=== PATIENT | male | born 1990 | race African-American/Black ===

== ENCOUNTER 2017-05-01 08:36 | Emergency (ER) | payer MEDICAID, MEDICARE ==
[~2017-05-01] VITALS: Ht 175.3 cm; Wt 113.0 kg
[2017-05-01] MEDS ORDERED: IBUPROFEN 600MG TABLET PO ONE (12:00)
[2017-05-01 12:01] VITALS: BP 144/86
== END 2017-05-01 14:06 | disposition home or self-care (01) ==
LOC: ER 12:07
DX: S42.032A Displaced fracture of lateral end of left clavicle, initial encounter for closed fracture (principal); Y04.2XXA Assault by strike against or bumped into by another person, initial encounter; Y93.89 Activity, other specified; Y92.410 Unspecified street and highway as the place of occurrence of the external cause; R03.0 Elevated blood-pressure reading, without diagnosis of hypertension; Z72.0 Tobacco use; F12.90 Cannabis use, unspecified, uncomplicated
CPT/HCPCS: 73030; 99284

== ENCOUNTER 2018-04-08 09:33 | Emergency (ER) | payer MEDICAID, MEDICARE ==
[~2018-04-08] VITALS: Ht 177.8 cm; Wt 121.0 kg
[2018-04-08 09:56] VITALS: BP 136/95
== END 2018-04-08 12:02 | disposition left against medical advice (07) ==
LOC: ER 11:37
DX: S40.222A Blister (nonthermal) of left shoulder, initial encounter (principal); S40.221A Blister (nonthermal) of right shoulder, initial encounter; Z53.21 Procedure and treatment not carried out due to patient leaving prior to being seen by health care provider; X58.XXXA Exposure to other specified factors, initial encounter; Y93.89 Activity, other specified; Y92.89 Other specified places as the place of occurrence of the external cause; Y99.8 Other external cause status

== ENCOUNTER 2019-02-22 14:40 | Emergency (ER) | payer MEDICAID ==
[~2019-02-22] VITALS: Ht 172.7 cm; Wt 122.0 kg
[2019-02-22 17:36] VITALS: BP 147/85
== END 2019-02-22 17:39 | disposition home or self-care (01) ==
LOC: ER 14:40
DX: M25.512 Pain in left shoulder (principal); F17.200 Nicotine dependence, unspecified, uncomplicated; F12.10 Cannabis abuse, uncomplicated; Z98.890 Other specified postprocedural states
CPT/HCPCS: 73030; 99283

== ENCOUNTER 2021-06-08 10:59 | Inpatient (IN) | payer MEDICAID ==
[~2021-06-08] VITALS: Ht 175.3 cm; Wt 127.0 kg
[2021-06-08 12:23] LABS: BASOPHILS % 0.6 % (0.0-2.0); EOSINOPHILS % 5.5 % (0.0-5.0); HEMATOCRIT. 42.3 % (42.0-52.0); HEMOGLOBIN. 14.5 g/dL (14.0-18.0); LYMPHOCYTES % 28.4 % (20.0-50.0); MEAN CORPUSCULAR HEMOGLOBIN 30.4 pg (28.0-32.0); MEAN CORPUSCULAR VOLUME 88.9 fL (80.0-94.0); MEAN PLATELET VOLUME 8.5 fl (7.4-10.4); MONOCYTES % 11.8 % (2.0-8.0); NEUTROPHILS % 53.7 % (40.0-76.0); PLATELET 312 x1000/uL (130-400); RED BLOOD CELL COUNT 4.76 mill/uL (4.7-6.1); RED CELL DISTRIBUTION WIDTH 13.3 % (11.6-14.6)
[2021-06-08 12:47] LABS: CHLORIDE 109 mEq/L (98-107)
[2021-06-08 12:52] LABS: ETHANOL BLOOD < 10 mg/dL
[2021-06-08] MEDS ORDERED: PANTOPRAZOLE SODIUM 40 MG/VIAL IV NR (16:15)
[2021-06-08] MEDS ORDERED: DOCUSATE SODIUM 100MG CAPSULE PO PRN (17:45)
[2021-06-08] MEDS ORDERED: ONDANSETRON HCL 4MG/2ML INJ IV PRN (17:45)
[2021-06-08] MEDS ORDERED: CLONIDINE 0.1MG TABLET PO PRN (17:45)
[2021-06-08] MEDS ORDERED: LORAZEPAM 0.5MG TABLET PO PRN (17:45)
[2021-06-08] MEDS ORDERED: NA PHOS,M-B/NA PHOS,DI-BA ENEMA 118ML PR PRN (17:45)
[2021-06-08] MEDS ORDERED: GUAIFENESIN 200MG/10ML SUGAR FREE UDC PO PRN (17:45)
[2021-06-08] MEDS ORDERED: HYDROCODONE/ACETAMINOPHEN 5/325MG TABLET PO PRN (17:45)
[2021-06-08] MEDS ORDERED: IPRATROPIUM/ALBUTEROL 0.5-3(2.5)MG/3ML NEB NEB PRN (17:45)
[2021-06-08] MEDS ORDERED: ACETAMINOPHEN 325MG TABLET PO PRN (17:45)
[2021-06-08] MEDS ORDERED: MAGNESIUM/ALUMINUM HYDROXIDE/SIMETHICONE 30ML UDC PO PRN (17:45)
[2021-06-08] MEDS ORDERED: ACETAMINOPHEN 650MG SUPP PR PRN (17:45)
[2021-06-08] MEDS ORDERED: DIPHENHYDRAMINE 50MG/ML VIAL IV PRN (17:45)
[2021-06-08] MEDS ORDERED: NALOXONE HCL 0.4MG/ML VIAL IV PRN (18:00)
[2021-06-08] MEDS ORDERED: DEXT 5%/0.45% NACL KCL 20MEQ/L 1,000 ML IV SCH (18:00)
[2021-06-08 18:18] LABS: TOTAL IRON BINDING CAPACITY 326 ug/dL (250-450)
[2021-06-08 18:31] LABS: FERRITIN 71 ng/mL (22-322)
[2021-06-08] MEDS: THIAMINE HCL 100MG TABLET PO SCH (18:39)
[2021-06-08] MEDS: FOLIC ACID 1MG TABLET PO SCH (18:39)
[2021-06-08] MEDS: MULTIVITAMINS,THER W-MINERALS TABLET PO SCH (18:40)
[2021-06-08 18:44] LABS: VITAMIN B12 SERUM 275 pg/mL (211-911)
[2021-06-08 23:45] VITALS: BP 143/91
[2021-06-09 04:00] VITALS: BP 124/73
[2021-06-09] MEDS ORDERED: PANTOPRAZOLE SODIUM 40 MG/VIAL IV SCH (09:00)
[2021-06-09 10:08] LABS: BASOPHILS % 0.3 % (0.0-2.0); EOSINOPHILS % 5.9 % (0.0-5.0); HEMATOCRIT. 44.9 % (42.0-52.0); HEMOGLOBIN. 14.9 g/dL (14.0-18.0); LYMPHOCYTES % 28.3 % (20.0-50.0); MEAN CORPUSCULAR HEMOGLOBIN 29.6 pg (28.0-32.0); MEAN CORPUSCULAR VOLUME 89.4 fL (80.0-94.0); MEAN PLATELET VOLUME 8.2 fl (7.4-10.4); MONOCYTES % 10.4 % (2.0-8.0); NEUTROPHILS % 55.1 % (40.0-76.0); PLATELET 325 x1000/uL (130-400); RED BLOOD CELL COUNT 5.02 mill/uL (4.7-6.1)
[2021-06-09 10:09] LABS: RED CELL DISTRIBUTION WIDTH 13.3 % (11.6-14.6)
[2021-06-09] MEDS: MULTIVITAMINS,THER W-MINERALS TABLET PO SCH (10:18)
[2021-06-09 10:19] LABS: CHLORIDE 106 mEq/L (98-107)
[2021-06-09] MEDS: THIAMINE HCL 100MG TABLET PO SCH (10:19)
[2021-06-09 10:26] LABS: LDL CHOLESTEROL 104 mg/dL (5-100)
[2021-06-09 10:28] LABS: HDL CHOLESTEROL 39 mg/dL (40-59)
[2021-06-09] MEDS: FOLIC ACID 1MG TABLET PO SCH (10:32)
[2021-06-09] MEDS ORDERED: PROT40 MT (12:09)
[2021-06-09 14:18] VITALS: BP 135/72
[2021-06-14 13:09] LABS: ATYPICAL pANCA <1:20 titer (Neg:<1:20); SACCHAROMYCES CEREVISIAE IGG <20.0 Units (0.0-24.9); SACCHAROMYCES CEREVISIAE IGM <20.0 Units (0.0-24.9)
== END 2021-06-09 15:01 | disposition home or self-care (01) | DRG 253 ==
LOC: ER 10:59 → SUPCPDRO 18:03 → EDBEDREQSVC 18:30 → MICUSO 20:36 → 8WST 22:00
PROVIDERS: ADMIT Internal Medicine; ATTEND Internal Medicine
DX: K62.5 Hemorrhage of anus and rectum (principal); K85.90 Acute pancreatitis without necrosis or infection, unspecified; K76.0 Fatty (change of) liver, not elsewhere classified; K64.9 Unspecified hemorrhoids; E66.9 Obesity, unspecified; R73.9 Hyperglycemia, unspecified; E86.0 Dehydration; Z68.41 Body mass index [BMI] 40.0-44.9, adult
CPT/HCPCS: 36415; 74176; 76705; 80048; 80053; 80061; 80076; 80320; 82607; 82728; 83036; 83540; 83550; 84439; 84443; 85025; 85044; 86256; 86671; 86850; 86900; 93005; 99285; C9113; G0480